=== PATIENT | male | born 1965 | race Caucasian/White ===

== ENCOUNTER 2018-01-30 14:00 | Inpatient (IN) | payer MEDICARE, OTHER ==
[2018-01-30 15:22] VITALS: BMI 33.7
--- NOTE | 2018-01-30 16:53 | HP ---
Screened but not Admitted - Documentation of Visit Screened but not Admitted: Yes Left Prior to Completion of Assessment: No Patient Does Not Meet Criteria for Admission: Yes
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
[2018-01-30] MEDS ORDERED: guaiFENesin/D-METHORPHAN HB 10 ML UNIT-DOSE CUPS PO PRN (17:21)
[2018-01-30] MEDS ORDERED: P-EPHED 60MG/TRIPROLIDI 2.5MG TABLET PO PRN (17:21)
[2018-01-30] MEDS ORDERED: ACETAMINOPHEN 325 MG TABLET (FP) PO PRN (17:21)
[2018-01-30] MEDS ORDERED: IBUPROFEN 400 MG TABLET (FP) PO PRN (17:21)
[2018-01-30] MEDS ORDERED: MAGNESIUM CITRATE 300 ML BOTTLE PO PRN (17:21)
[2018-01-30] MEDS ORDERED: MAG HYDROX/AL HYDROX/SIMETH 30 ML UNIT-DOSE CUP PO PRN (17:21)
[2018-01-30] MEDS ORDERED: LOPERAMIDE HCL 2 MG CAPSULE PO PRN (17:21)
[2018-01-30] MEDS ORDERED: MENTHOL/PHENOL 1 EACH UD MM PRN (17:21)
[2018-01-30] MEDS ORDERED: TUBERCULIN PPD 5 TU/0.1ML VIAL ID ONE (18:29)
[2018-01-30] MEDS: metFORMIN HCL 500 MG TABLET (FP) PO SCH (18:32)
[2018-01-30] MEDS: NICOTINE POLACRILEX 2 MG GUM BC PRN (18:33)
[2018-01-30] MEDS: NICOTINE 21 MG/24 HOURS TOPICAL PATCH TD SCH (18:33)
[2018-01-30] MEDS: COLLOIDAL OATMEAL 1 BAR EACH TP PRN (21:20)
[2018-01-30] MEDS: THIAMINE HCL 100 MG TABLET (FP) PO SCH (21:21)
[2018-01-30] MEDS: CLOPIDOGREL BISULFATE 75 MG TABLET (FP) PO SCH (21:21)
[2018-01-30] MEDS: MONTELUKAST NA 10 MG TABLET PO SCH (21:21)
[2018-01-30] MEDS: MELATONIN 5 MG TABLETS PO PRN (21:22)
[2018-01-30 23:53] LABS: URINE APPEARANCE TURBID; URINE BILIRUBIN NEGATIVE (<2.0 mg/dL); URINE BLOOD NEGATIVE (NEGATIVE); URINE COLOR AMBER; URINE GLUCOSE (UA) NEGATIVE (NEGATIVE); URINE KETONE NEGATIVE (NEGATIVE); URINE LEUK ESTERASE TRACE (NEGATIVE); URINE NITRITE NEGATIVE (NEGATIVE); URINE PROTEIN NEGATIVE (NEGATIVE); URINE UROBILINOGEN NEGATIVE mg/dL (0.2-1.0)
[2018-01-31 00:33] LABS: EPI CELLS RARE /HPF (FEW); URINE MUCUS RARE
[2018-01-31] MEDS: metFORMIN HCL 500 MG TABLET (FP) PO SCH ×2 (06:33→16:45)
[2018-01-31] MEDS: NICOTINE POLACRILEX 2 MG GUM BC PRN (06:38)
[2018-01-31] MEDS: PANTOPRAZOLE 40 MG TABLET (FP) PO SCH (09:37)
[2018-01-31] MEDS: ASPIRIN 81 MG CHEWABLE TABLETS PO SCH (09:37)
[2018-01-31] MEDS: LISINOPRIL 10 MG TABLET (FP) PO SCH (09:37)
[2018-01-31] MEDS: PRENATAL VITAMINS W/ FOLIC ACID TABLET (FP) PO SCH (09:37)
[2018-01-31] MEDS: NICOTINE 21 MG/24 HOURS TOPICAL PATCH TD SCH (09:38)
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
--- NOTE | 2018-01-31 13:50 | PN ---
[facility] Progress Note Note: Patient reports hx of chronic back pain secondary to herniated disc and pending surgery. During his last hospital admission at [facility] patient was tx with oxycotin and tramadol for pain. Out patient patient was on tramadol for pain relief. Others' Prescriptions Patient Name: Juno Mccormick Date: 1965 Address: [address] [place] [address] Sex: Male Rx Written Rx Dispensed Drug Quantity Days Supply Prescriber Name 12/17/2017 12/26/2017 alprazolam 2 mg tablet 60 30 Salguero, Walker 12/17/2017 12/26/2017 tramadol hcl 50 mg tablet 60 30 Salguero, Walker 11/15/2017 11/24/2017 alprazolam 2 mg tablet 60 30 Salguero, Walker 11/15/2017 11/24/2017 tramadol hcl 50 mg tablet 60 30 Salguero, Walker 10/18/2017 10/26/2017 alprazolam 1 mg tablet 120 30 Salguero, Walker 08/22/2017 08/23/2017 alprazolam 1 mg tablet 120 30 Salguero, Walker 08/22/2017 08/23/2017 tramadol hcl 50 mg tablet 60 30 Salguero, Walker 07/19/2017 07/24/2017 alprazolam 1 mg tablet 120 30 Salguero, Walker 07/19/2017 07/24/2017 tramadol hcl 50 mg tablet 60 30 Salguero, Walker 03/14/2017 03/15/2017 alprazolam 1 mg tablet 120 30 SalgueroWalker villafuerte MD 03/14/2017 03/15/2017 tramadol hcl 50 mg tablet 60 30 SalgueroWalker MD Vital Signs Temperature 97.8 F 01/31/18 07:12 Pulse Rate 93 H 01/31/18 10:00 Respiratory Rate 18 01/31/18 07:12 Blood Pressure 111/75 01/31/18 10:00 O2 Sat by Pulse Oximetry (%) patient AOx3, in no apparent distress ambulating in the unit with no limitations no joint erythema skin intact - chronic back pain Plan: Flexeril 5mg TID start trial gabapentin 100mg TID and adjust dose as needed Tylenol PRN Lidocaine patch continue to monitor
[2018-01-31 14:02] LABS: HEMATOCRIT 46.6 % (35.4-49); HEMOGLOBIN 15.2 GM/dL (11.7-16.9); MCH 26.6 pg (25.7-33.7); MCHC 32.5 g/dl (32.0-35.9); MEAN CELL VOLUME 81.8 fl (80-96); MEAN PLT VOLUME 8.6 fl (7.5-11.1); PLATELET COUNT 266 K/MM3 (134-434); RBC 5.69 M/mm3 (4.00-5.60); RDW 14.5 % (11.9-15.9); WHITE BLOOD COUNT 9.7 K/mm3 (4.0-10.0)
[2018-01-31 14:05] LABS: CHLORIDE 106 mmol/L (98-107); POTASSIUM 4.6 mmol/L (3.5-5.1); SODIUM 139 mmol/L (136-145)
[2018-01-31] MEDS: busPIRone HCL 5 MG TABLET PO SCH ×2 (14:17→21:26)
[2018-01-31] MEDS: CYCLOBENZAPRINE HCL 5 MG TABLET PO SCH ×2 (14:17→21:26)
[2018-01-31 14:18] LABS: ALBUMIN 3.5 g/dl (3.4-5.0); ALK PHOS 77 U/L (45-117); ANION GAP 8 (8-16); BILIRUBIN,TOTAL 0.4 mg/dL (0.2-1.0); BLOOD UREA NITROGEN 18 mg/dL (7-18); CALCIUM 8.3 mg/dL (8.5-10.1); CO2 25 mmol/L (21-32); CREATININE 1.2 mg/dL (0.7-1.3); GLUCOSE,RANDOM 109 mg/dL (74-106); SGOT/AST 19 U/L (15-37); SGPT/ALT 36 U/L (12-78); TOT PROT 6.5 g/dl (6.4-8.2)
[2018-01-31] MEDS: GABAPENTIN 100 MG CAPSULE (FP) PO SCH ×2 (14:18→21:26)
[2018-01-31] MEDS: LIDOCAINE 5% TOPICAL PATCH TP SCH (14:19)
--- NOTE | 2018-01-31 16:33 | EKG ---
Test Reason : Blood Pressure : / mmHG Vent. Rate : 095 BPM Atrial Rate : 095 BPM P-R Int : 150 ms QRS Dur : 112 ms QT Int : 376 ms P-R-T Axes : 057 -22 057 degrees QTc Int : 472 ms NORMAL SINUS RHYTHM NORMAL ECG NO PREVIOUS ECGS AVAILABLE Confirmed by JAKE SHEPARD MD ([id number]) on 01/31/2018 4:33:16 PM Referred By: Confirmed By:JAKE SHEPARD MD
[2018-01-31] MEDS: traZODone HCL 50 MG TABLET (FP) PO SCH (21:26)
[2018-01-31] MEDS: THIAMINE HCL 100 MG TABLET (FP) PO SCH (21:26)
[2018-01-31] MEDS: MONTELUKAST NA 10 MG TABLET PO SCH (21:26)
[2018-01-31] MEDS: CLOPIDOGREL BISULFATE 75 MG TABLET (FP) PO SCH (21:26)
[2018-01-31] MEDS: LIDOCAINE PATCH REMOVAL MC SCH (21:27)
[2018-01-31] MEDS: ALBUTEROL SO4 18 GM HFA INHALER IH PRN (21:29)
[2018-02-01] MEDS: busPIRone HCL 5 MG TABLET PO SCH ×3 (06:10→21:12)
[2018-02-01] MEDS: CYCLOBENZAPRINE HCL 5 MG TABLET PO SCH ×3 (06:10→21:12)
[2018-02-01] MEDS: metFORMIN HCL 500 MG TABLET (FP) PO SCH ×2 (06:10→16:41)
[2018-02-01] MEDS: GABAPENTIN 100 MG CAPSULE (FP) PO SCH ×3 (06:10→21:12)
[2018-02-01] MEDS: NICOTINE POLACRILEX 2 MG GUM BC PRN ×5 (06:12→21:15)
[2018-02-01] MEDS ORDERED: DULoxetine HCL 30 MG CAPSULE.DR (FP) PO ONE (08:59)
[2018-02-01] MEDS: LISINOPRIL 10 MG TABLET (FP) PO SCH (09:52)
[2018-02-01] MEDS: ASPIRIN 81 MG CHEWABLE TABLETS PO SCH (09:52)
[2018-02-01] MEDS: PRENATAL VITAMINS W/ FOLIC ACID TABLET (FP) PO SCH (09:52)
[2018-02-01] MEDS: PANTOPRAZOLE 40 MG TABLET (FP) PO SCH (09:53)
[2018-02-01] MEDS: LIDOCAINE 5% TOPICAL PATCH TP SCH (09:53)
[2018-02-01] MEDS: NICOTINE 21 MG/24 HOURS TOPICAL PATCH TD SCH (09:53)
[2018-02-01] MEDS: DULoxetine HCL 60 MG CAPSULE.DR PO SCH (09:53)
[2018-02-01] MEDS: CLOPIDOGREL BISULFATE 75 MG TABLET (FP) PO SCH (21:12)
[2018-02-01] MEDS: traZODone HCL 50 MG TABLET (FP) PO SCH (21:12)
[2018-02-01] MEDS: THIAMINE HCL 100 MG TABLET (FP) PO SCH (21:13)
[2018-02-01] MEDS: MONTELUKAST NA 10 MG TABLET PO SCH (21:13)
[2018-02-01] MEDS: MELATONIN 5 MG TABLETS PO PRN (21:14)
[2018-02-01] MEDS: LIDOCAINE PATCH REMOVAL MC SCH (21:14)
[2018-02-02] MEDS: GABAPENTIN 100 MG CAPSULE (FP) PO SCH ×3 (06:57→21:16)
[2018-02-02] MEDS: CYCLOBENZAPRINE HCL 5 MG TABLET PO SCH ×3 (06:57→21:16)
[2018-02-02] MEDS: busPIRone HCL 5 MG TABLET PO SCH ×3 (06:57→21:16)
[2018-02-02] MEDS: NICOTINE POLACRILEX 2 MG GUM BC PRN ×5 (06:59→21:18)
[2018-02-02] MEDS: metFORMIN HCL 500 MG TABLET (FP) PO SCH ×2 (07:00→16:42)
[2018-02-02] MEDS ORDERED: DULoxetine HCL 30 MG CAPSULE.DR (FP) PO ONE (08:42)
[2018-02-02] MEDS: ASPIRIN 81 MG CHEWABLE TABLETS PO SCH (10:07)
[2018-02-02] MEDS: DULoxetine HCL 60 MG CAPSULE.DR PO SCH (10:07)
[2018-02-02] MEDS: PRENATAL VITAMINS W/ FOLIC ACID TABLET (FP) PO SCH (10:08)
[2018-02-02] MEDS: NICOTINE 21 MG/24 HOURS TOPICAL PATCH TD SCH (10:08)
[2018-02-02] MEDS: LISINOPRIL 10 MG TABLET (FP) PO SCH (10:08)
[2018-02-02] MEDS: LIDOCAINE 5% TOPICAL PATCH TP SCH (10:08)
[2018-02-02] MEDS: PANTOPRAZOLE 40 MG TABLET (FP) PO SCH (10:08)
[2018-02-02] MEDS: THIAMINE HCL 100 MG TABLET (FP) PO SCH (21:16)
[2018-02-02] MEDS: MONTELUKAST NA 10 MG TABLET PO SCH (21:16)
[2018-02-02] MEDS: traZODone HCL 50 MG TABLET (FP) PO SCH (21:16)
[2018-02-02] MEDS: CLOPIDOGREL BISULFATE 75 MG TABLET (FP) PO SCH (21:16)
[2018-02-02] MEDS: MELATONIN 5 MG TABLETS PO PRN (21:17)
[2018-02-02] MEDS: LIDOCAINE PATCH REMOVAL MC SCH (21:18)
[2018-02-03] MEDS: metFORMIN HCL 500 MG TABLET (FP) PO SCH ×2 (06:38→16:45)
[2018-02-03] MEDS: CYCLOBENZAPRINE HCL 5 MG TABLET PO SCH ×3 (06:38→21:09)
[2018-02-03] MEDS: busPIRone HCL 5 MG TABLET PO SCH ×3 (06:38→21:09)
[2018-02-03] MEDS: GABAPENTIN 100 MG CAPSULE (FP) PO SCH ×3 (06:38→21:09)
[2018-02-03] MEDS: NICOTINE POLACRILEX 2 MG GUM BC PRN ×4 (06:41→21:11)
[2018-02-03] MEDS ORDERED: DULoxetine HCL 30 MG CAPSULE.DR (FP) PO ONE (08:34)
[2018-02-03] MEDS: LIDOCAINE 5% TOPICAL PATCH TP SCH (09:54)
[2018-02-03] MEDS: ASPIRIN 81 MG CHEWABLE TABLETS PO SCH (09:54)
[2018-02-03] MEDS: PRENATAL VITAMINS W/ FOLIC ACID TABLET (FP) PO SCH (09:54)
[2018-02-03] MEDS: PANTOPRAZOLE 40 MG TABLET (FP) PO SCH (09:55)
[2018-02-03] MEDS: DULoxetine HCL 60 MG CAPSULE.DR PO SCH (09:55)
[2018-02-03] MEDS: LISINOPRIL 10 MG TABLET (FP) PO SCH (09:55)
[2018-02-03] MEDS: NICOTINE 21 MG/24 HOURS TOPICAL PATCH TD SCH (09:55)
[2018-02-03] MEDS: THIAMINE HCL 100 MG TABLET (FP) PO SCH (21:09)
[2018-02-03] MEDS: CLOPIDOGREL BISULFATE 75 MG TABLET (FP) PO SCH (21:09)
[2018-02-03] MEDS: traZODone HCL 50 MG TABLET (FP) PO SCH (21:09)
[2018-02-03] MEDS: MONTELUKAST NA 10 MG TABLET PO SCH (21:09)
[2018-02-03] MEDS: MELATONIN 5 MG TABLETS PO PRN (21:10)
[2018-02-03] MEDS: LIDOCAINE PATCH REMOVAL MC SCH (22:00)
[2018-02-04] MEDS: busPIRone HCL 5 MG TABLET PO SCH (06:34)
[2018-02-04] MEDS: CYCLOBENZAPRINE HCL 5 MG TABLET PO SCH ×3 (06:34→21:21)
[2018-02-04] MEDS: GABAPENTIN 100 MG CAPSULE (FP) PO SCH (06:34)
[2018-02-04] MEDS: NICOTINE POLACRILEX 2 MG GUM BC PRN ×4 (06:35→21:24)
[2018-02-04] MEDS: NICOTINE 21 MG/24 HOURS TOPICAL PATCH TD SCH (09:40)
[2018-02-04] MEDS: LIDOCAINE 5% TOPICAL PATCH TP SCH (09:40)
[2018-02-04] MEDS: LISINOPRIL 10 MG TABLET (FP) PO SCH (09:40)
[2018-02-04] MEDS: PRENATAL VITAMINS W/ FOLIC ACID TABLET (FP) PO SCH (09:40)
[2018-02-04] MEDS: ASPIRIN 81 MG CHEWABLE TABLETS PO SCH (09:40)
[2018-02-04] MEDS: PANTOPRAZOLE 40 MG TABLET (FP) PO SCH (09:40)
[2018-02-04] MEDS: DULoxetine HCL 60 MG CAPSULE.DR PO SCH (10:31)
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
--- NOTE | 2018-02-04 12:49 | PN ---
S Progress Note Note: Vital Signs Temperature 98.0 F 02/04/18 06:32 Pulse Rate 97 H 02/04/18 10:00 Respiratory Rate 18 02/04/18 10:00 Blood Pressure 138/88 02/04/18 10:00 O2 Sat by Pulse Oximetry (%) Patient c/o of no pain releif with neurontin 100 mg TID. Dose increase to 300 mg TID. Continue to monitor
[2018-02-04] MEDS: GABAPENTIN 300 MG CAPSULE (FP) PO SCH ×2 (14:12→21:21)
[2018-02-04] MEDS: busPIRone HCL 10 MG TABLET (FP) PO SCH ×2 (14:12→21:21)
[2018-02-04] MEDS: metFORMIN HCL 500 MG TABLET (FP) PO SCH (16:52)
[2018-02-04] MEDS: CLOPIDOGREL BISULFATE 75 MG TABLET (FP) PO SCH (21:21)
[2018-02-04] MEDS: MONTELUKAST NA 10 MG TABLET PO SCH (21:21)
[2018-02-04] MEDS: THIAMINE HCL 100 MG TABLET (FP) PO SCH (21:22)
[2018-02-04] MEDS: MELATONIN 5 MG TABLETS PO PRN (21:22)
[2018-02-04] MEDS: LIDOCAINE PATCH REMOVAL MC SCH (21:23)
[2018-02-04] MEDS: traZODone HCL 100 MG TABLET (FP) PO SCH (21:24)
[2018-02-05] MEDS: CYCLOBENZAPRINE HCL 5 MG TABLET PO SCH ×3 (06:33→21:25)
[2018-02-05] MEDS: GABAPENTIN 300 MG CAPSULE (FP) PO SCH ×3 (06:33→21:25)
[2018-02-05] MEDS: metFORMIN HCL 500 MG TABLET (FP) PO SCH ×2 (06:33→16:35)
[2018-02-05] MEDS: busPIRone HCL 10 MG TABLET (FP) PO SCH ×3 (06:33→21:25)
[2018-02-05] MEDS: NICOTINE POLACRILEX 2 MG GUM BC PRN ×4 (06:34→21:26)
[2018-02-05] MEDS ORDERED: DULoxetine HCL 30 MG CAPSULE.DR (FP) PO ONE (09:30)
[2018-02-05] MEDS: ASPIRIN 81 MG CHEWABLE TABLETS PO SCH (10:13)
[2018-02-05] MEDS: NICOTINE 21 MG/24 HOURS TOPICAL PATCH TD SCH (10:13)
[2018-02-05] MEDS: LIDOCAINE 5% TOPICAL PATCH TP SCH (10:13)
[2018-02-05] MEDS: DULoxetine HCL 60 MG CAPSULE.DR PO SCH (10:13)
[2018-02-05] MEDS: PANTOPRAZOLE 40 MG TABLET (FP) PO SCH (10:13)
[2018-02-05] MEDS: LISINOPRIL 10 MG TABLET (FP) PO SCH (10:13)
[2018-02-05] MEDS: PRENATAL VITAMINS W/ FOLIC ACID TABLET (FP) PO SCH (10:13)
[2018-02-05] MEDS: traZODone HCL 100 MG TABLET (FP) PO SCH (21:25)
[2018-02-05] MEDS: THIAMINE HCL 100 MG TABLET (FP) PO SCH (21:25)
[2018-02-05] MEDS: MELATONIN 5 MG TABLETS PO PRN (21:25)
[2018-02-05] MEDS: MONTELUKAST NA 10 MG TABLET PO SCH (21:25)
[2018-02-05] MEDS: CLOPIDOGREL BISULFATE 75 MG TABLET (FP) PO SCH (21:25)
[2018-02-05] MEDS: LIDOCAINE PATCH REMOVAL MC SCH (21:26)
[2018-02-05] MEDS: MAGNESIUM HYDROX 2400MG/30ML ORAL SUSPENSION 30 ML CUP PO PRN (21:28)
[2018-02-06] MEDS: CYCLOBENZAPRINE HCL 5 MG TABLET PO SCH (06:31)
[2018-02-06] MEDS: busPIRone HCL 10 MG TABLET (FP) PO SCH ×3 (06:31→21:25)
[2018-02-06] MEDS: GABAPENTIN 300 MG CAPSULE (FP) PO SCH ×3 (06:31→21:23)
[2018-02-06] MEDS: metFORMIN HCL 500 MG TABLET (FP) PO SCH ×3 (06:31→16:42)
[2018-02-06] MEDS: NICOTINE POLACRILEX 2 MG GUM BC PRN ×5 (06:33→21:26)
[2018-02-06] MEDS: ASPIRIN 81 MG CHEWABLE TABLETS PO SCH (10:06)
[2018-02-06] MEDS: PANTOPRAZOLE 40 MG TABLET (FP) PO SCH (10:06)
[2018-02-06] MEDS: DULoxetine HCL 60 MG CAPSULE.DR PO SCH (10:07)
[2018-02-06] MEDS: PRENATAL VITAMINS W/ FOLIC ACID TABLET (FP) PO SCH (10:07)
[2018-02-06] MEDS: NICOTINE 21 MG/24 HOURS TOPICAL PATCH TD SCH (10:07)
[2018-02-06] MEDS: LISINOPRIL 10 MG TABLET (FP) PO SCH (10:07)
[2018-02-06] MEDS: LIDOCAINE 5% TOPICAL PATCH TP SCH (10:09)
--- NOTE | 2018-02-06 12:32 | PN ---
[facility] Progress Note Note: Patient presents with c/o low back pain, level 6/10. non-radiating. States medication not relieved with Gabapentin. Vital Signs Temperature 98.0 F 02/06/18 07:03 Pulse Rate 102 H 02/06/18 08:53 Respiratory Rate 18 02/06/18 07:03 Blood Pressure 103/76 02/06/18 08:53 O2 Sat by Pulse Oximetry (%) Obj: General: patient is alert and oriented x 3. In no acute distress. Ambulating within unit without device. Skin: warm and dry Ext: no edema, full ROM MS: L spine tenderness. A/P: LBP Will d/c flexeril start baclofen 10mg TID continue to monitor clinically
[2018-02-06] MEDS: BACLOFEN 10 MG TABLET (FP) PO SCH ×2 (14:27→21:23)
[2018-02-06] MEDS: ALBUTEROL SO4 18 GM HFA INHALER IH PRN (16:43)
[2018-02-06] MEDS: MELATONIN 5 MG TABLETS PO PRN (21:23)
[2018-02-06] MEDS: MONTELUKAST NA 10 MG TABLET PO SCH (21:23)
[2018-02-06] MEDS: traZODone HCL 100 MG TABLET (FP) PO SCH (21:23)
[2018-02-06] MEDS: THIAMINE HCL 100 MG TABLET (FP) PO SCH (21:23)
[2018-02-06] MEDS: CLOPIDOGREL BISULFATE 75 MG TABLET (FP) PO SCH (21:23)
[2018-02-06] MEDS: LIDOCAINE PATCH REMOVAL MC SCH (21:25)
[2018-02-06] MEDS: MAGNESIUM HYDROX 2400MG/30ML ORAL SUSPENSION 30 ML CUP PO PRN (22:32)
[2018-02-07] MEDS: busPIRone HCL 10 MG TABLET (FP) PO SCH ×3 (06:27→21:38)
[2018-02-07] MEDS: GABAPENTIN 300 MG CAPSULE (FP) PO SCH (06:27)
[2018-02-07] MEDS: metFORMIN HCL 500 MG TABLET (FP) PO SCH ×2 (06:27→16:50)
[2018-02-07] MEDS: BACLOFEN 10 MG TABLET (FP) PO SCH ×3 (06:27→21:38)
[2018-02-07] MEDS: NICOTINE POLACRILEX 2 MG GUM BC PRN ×5 (06:29→21:40)
[2018-02-07] MEDS: NICOTINE 21 MG/24 HOURS TOPICAL PATCH TD SCH (10:20)
[2018-02-07] MEDS: LISINOPRIL 10 MG TABLET (FP) PO SCH (10:20)
[2018-02-07] MEDS: ASPIRIN 81 MG CHEWABLE TABLETS PO SCH (10:20)
[2018-02-07] MEDS: DULoxetine HCL 60 MG CAPSULE.DR PO SCH (10:20)
[2018-02-07] MEDS: LIDOCAINE 5% TOPICAL PATCH TP SCH (10:20)
[2018-02-07] MEDS: PANTOPRAZOLE 40 MG TABLET (FP) PO SCH (10:20)
[2018-02-07] MEDS: PRENATAL VITAMINS W/ FOLIC ACID TABLET (FP) PO SCH (10:20)
[2018-02-07] MEDS: ALBUTEROL SO4 18 GM HFA INHALER IH PRN (10:22)
[2018-02-07] MEDS: hydrOXYzine PAMOATE 50 MG CAPSULE (FP) PO PRN (10:22)
--- NOTE | 2018-02-07 12:53 | PN ---
[facility] Progress Note Note: c/o of unrelieved back pain. No paresthesia or incontinence reported. Vital Signs Temperature 97.9 F 02/07/18 06:37 Pulse Rate 92 H 02/07/18 10:00 Respiratory Rate 20 02/07/18 10:00 Blood Pressure 124/81 02/07/18 10:00 O2 Sat by Pulse Oximetry (%) AOx3 in no apparent distress ambulating in the unit - chronic low back pain Plan: increase neurontin from 300mg to 400mg TID ambulation continue to monitor
[2018-02-07] MEDS: GABAPENTIN 400 MG CAPSULE (FP) PO SCH ×2 (13:42→21:38)
[2018-02-07] MEDS: MONTELUKAST NA 10 MG TABLET PO SCH (21:38)
[2018-02-07] MEDS: traZODone HCL 100 MG TABLET (FP) PO SCH (21:38)
[2018-02-07] MEDS: CLOPIDOGREL BISULFATE 75 MG TABLET (FP) PO SCH (21:38)
[2018-02-07] MEDS: THIAMINE HCL 100 MG TABLET (FP) PO SCH (21:38)
[2018-02-07] MEDS: LIDOCAINE PATCH REMOVAL MC SCH (21:39)
[2018-02-07] MEDS: MELATONIN 5 MG TABLETS PO PRN (21:39)
[2018-02-08] MEDS: GABAPENTIN 400 MG CAPSULE (FP) PO SCH ×3 (07:09→21:11)
[2018-02-08] MEDS: busPIRone HCL 10 MG TABLET (FP) PO SCH (07:09)
[2018-02-08] MEDS: metFORMIN HCL 500 MG TABLET (FP) PO SCH ×2 (07:09→16:48)
[2018-02-08] MEDS: BACLOFEN 10 MG TABLET (FP) PO SCH ×3 (07:09→21:11)
[2018-02-08] MEDS: NICOTINE POLACRILEX 2 MG GUM BC PRN ×5 (07:11→20:45)
[2018-02-08] MEDS: PRENATAL VITAMINS W/ FOLIC ACID TABLET (FP) PO SCH (10:11)
[2018-02-08] MEDS: ASPIRIN 81 MG CHEWABLE TABLETS PO SCH (10:11)
[2018-02-08] MEDS: PANTOPRAZOLE 40 MG TABLET (FP) PO SCH (10:11)
[2018-02-08] MEDS: LISINOPRIL 10 MG TABLET (FP) PO SCH (10:12)
[2018-02-08] MEDS: DULoxetine HCL 60 MG CAPSULE.DR PO SCH (10:12)
--- NOTE | 2018-02-08 10:33 | PN ---
[facility] Progress Note Note: patient reports feeling dizzy from Buspar and asked to d/c medication, will d/c
[2018-02-08] MEDS: LIDOCAINE 5% TOPICAL PATCH TP SCH (10:42)
[2018-02-08] MEDS: NICOTINE 21 MG/24 HOURS TOPICAL PATCH TD SCH (10:43)
[2018-02-08] MEDS: MAGNESIUM HYDROX 2400MG/30ML ORAL SUSPENSION 30 ML CUP PO PRN (18:45)
[2018-02-08] MEDS: ACETAMINOPHEN 325 MG TABLET (FP) PO PRN (20:43)
[2018-02-08] MEDS: MONTELUKAST NA 10 MG TABLET PO SCH (21:11)
[2018-02-08] MEDS: CLOPIDOGREL BISULFATE 75 MG TABLET (FP) PO SCH (21:11)
[2018-02-08] MEDS: traZODone HCL 100 MG TABLET (FP) PO SCH (21:11)
[2018-02-08] MEDS: MELATONIN 5 MG TABLETS PO PRN (21:11)
[2018-02-08] MEDS: THIAMINE HCL 100 MG TABLET (FP) PO SCH (21:11)
[2018-02-08] MEDS: LIDOCAINE PATCH REMOVAL MC SCH (21:12)
[2018-02-09] MEDS: GABAPENTIN 400 MG CAPSULE (FP) PO SCH ×3 (06:26→21:18)
[2018-02-09] MEDS: BACLOFEN 10 MG TABLET (FP) PO SCH ×3 (06:26→21:18)
[2018-02-09] MEDS: metFORMIN HCL 500 MG TABLET (FP) PO SCH ×2 (06:26→16:35)
[2018-02-09] MEDS: NICOTINE POLACRILEX 2 MG GUM BC PRN ×4 (06:27→21:19)
[2018-02-09] MEDS: LISINOPRIL 10 MG TABLET (FP) PO SCH (09:57)
[2018-02-09] MEDS: PANTOPRAZOLE 40 MG TABLET (FP) PO SCH (09:57)
[2018-02-09] MEDS: DULoxetine HCL 60 MG CAPSULE.DR PO SCH (09:57)
[2018-02-09] MEDS: ASPIRIN 81 MG CHEWABLE TABLETS PO SCH (09:58)
[2018-02-09] MEDS: NICOTINE 21 MG/24 HOURS TOPICAL PATCH TD SCH (09:58)
[2018-02-09] MEDS: PRENATAL VITAMINS W/ FOLIC ACID TABLET (FP) PO SCH (09:59)
[2018-02-09] MEDS: LIDOCAINE 5% TOPICAL PATCH TP SCH (10:00)
[2018-02-09] MEDS: CLOPIDOGREL BISULFATE 75 MG TABLET (FP) PO SCH (21:18)
[2018-02-09] MEDS: MONTELUKAST NA 10 MG TABLET PO SCH (21:18)
[2018-02-09] MEDS: MELATONIN 5 MG TABLETS PO PRN (21:18)
[2018-02-09] MEDS: traZODone HCL 100 MG TABLET (FP) PO SCH (21:18)
[2018-02-09] MEDS: THIAMINE HCL 100 MG TABLET (FP) PO SCH (21:18)
[2018-02-09] MEDS: LIDOCAINE PATCH REMOVAL MC SCH (21:19)
[2018-02-10] MEDS: BACLOFEN 10 MG TABLET (FP) PO SCH ×3 (06:20→21:11)
[2018-02-10] MEDS: GABAPENTIN 400 MG CAPSULE (FP) PO SCH ×3 (06:20→21:11)
[2018-02-10] MEDS: metFORMIN HCL 500 MG TABLET (FP) PO SCH ×2 (06:21→17:00)
[2018-02-10] MEDS: NICOTINE POLACRILEX 2 MG GUM BC PRN ×4 (06:21→21:11)
[2018-02-10] MEDS: ASPIRIN 81 MG CHEWABLE TABLETS PO SCH (09:40)
[2018-02-10] MEDS: hydrOXYzine PAMOATE 50 MG CAPSULE (FP) PO PRN (09:40)
[2018-02-10] MEDS: LISINOPRIL 10 MG TABLET (FP) PO SCH (09:40)
[2018-02-10] MEDS: LIDOCAINE 5% TOPICAL PATCH TP SCH (09:40)
[2018-02-10] MEDS: PANTOPRAZOLE 40 MG TABLET (FP) PO SCH (09:40)
[2018-02-10] MEDS: DULoxetine HCL 60 MG CAPSULE.DR PO SCH (09:40)
[2018-02-10] MEDS: PRENATAL VITAMINS W/ FOLIC ACID TABLET (FP) PO SCH (09:40)
[2018-02-10] MEDS: NICOTINE 21 MG/24 HOURS TOPICAL PATCH TD SCH (09:41)
[2018-02-10] MEDS: ACETAMINOPHEN 325 MG TABLET (FP) PO PRN (18:27)
[2018-02-10] MEDS: COLLOIDAL OATMEAL 1 BAR EACH TP PRN (18:28)
[2018-02-10] MEDS: LIDOCAINE PATCH REMOVAL MC SCH (21:10)
[2018-02-10] MEDS: MELATONIN 5 MG TABLETS PO PRN (21:10)
[2018-02-10] MEDS: THIAMINE HCL 100 MG TABLET (FP) PO SCH (21:11)
[2018-02-10] MEDS: CLOPIDOGREL BISULFATE 75 MG TABLET (FP) PO SCH (21:11)
[2018-02-10] MEDS: traZODone HCL 100 MG TABLET (FP) PO SCH (21:11)
[2018-02-10] MEDS: MONTELUKAST NA 10 MG TABLET PO SCH (21:11)
[2018-02-11] MEDS: BACLOFEN 10 MG TABLET (FP) PO SCH ×2 (06:27→13:55)
[2018-02-11] MEDS: metFORMIN HCL 500 MG TABLET (FP) PO SCH ×2 (06:27→16:35)
[2018-02-11] MEDS: GABAPENTIN 400 MG CAPSULE (FP) PO SCH ×2 (06:27→13:55)
[2018-02-11] MEDS: NICOTINE POLACRILEX 2 MG GUM BC PRN ×3 (06:28→13:56)
[2018-02-11 06:47] VITALS: TEMP 98.3
[2018-02-11] MEDS: ASPIRIN 81 MG CHEWABLE TABLETS PO SCH (10:03)
[2018-02-11] MEDS: LIDOCAINE 5% TOPICAL PATCH TP SCH (10:03)
[2018-02-11] MEDS: PRENATAL VITAMINS W/ FOLIC ACID TABLET (FP) PO SCH (10:03)
[2018-02-11] MEDS: LISINOPRIL 10 MG TABLET (FP) PO SCH (10:03)
[2018-02-11] MEDS: DULoxetine HCL 60 MG CAPSULE.DR PO SCH (10:03)
[2018-02-11] MEDS: NICOTINE 21 MG/24 HOURS TOPICAL PATCH TD SCH (10:03)
[2018-02-11] MEDS: PANTOPRAZOLE 40 MG TABLET (FP) PO SCH (10:04)
[2018-02-11] MEDS: hydrOXYzine PAMOATE 50 MG CAPSULE (FP) PO PRN (11:20)
[2018-02-11 12:00] VITALS: BP 116/76; PULSE 96
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
== END 2018-02-11 19:25 | disposition home or self-care (01) | DRG 895 ==
LOC: YASAS 14:00 → Y5N 17:34
PROVIDERS: ADMIT Psychiatry & Neurology Psychiatry; ATTEND Psychiatry & Neurology Psychiatry
PROC: HZ42ZZZ Group Counseling for Substance Abuse Treatment, Cognitive-Behavioral (ICD-10-PCS; principal; 2018-01-30)
DX: F10.20 Alcohol dependence, uncomplicated (principal); F14.20 Cocaine dependence, uncomplicated; F17.210 Nicotine dependence, cigarettes, uncomplicated; F31.9 Bipolar disorder, unspecified; F41.1 Generalized anxiety disorder; E11.9 Type 2 diabetes mellitus without complications; I10 Essential (primary) hypertension; M54.42 Lumbago with sciatica, left side; M54.41 Lumbago with sciatica, right side; G89.29 Other chronic pain; I25.10 Atherosclerotic heart disease of native coronary artery without angina pectoris; Z95.5 Presence of coronary angioplasty implant and graft; Z79.84 Long term (current) use of oral hypoglycemic drugs; Z91.5 Personal history of self-harm
CPT/HCPCS: 36415; 80053; 81003; 81015; 82962; 85027; 86593; 93005; 93010; J0475